=== PATIENT | female | born 1995 | race American Indian/Alaskan Native ===

== ENCOUNTER 2019-01-14 18:01 | Emergency (ER) | payer MEDICAID ==
--- NOTE | 2019-01-14 19:17 | Event Note ---
ED Screening Note Date of service: 01/14/19 Time: 19:12 ED Screening Note: This is a 23 y.o. F. that presents to the ER with dizziness, headache, and nausea for 4 days. Patient states she is 14 weeks . Followed by OBGYN. Reports a cramping sensation. Completed antibiotics for UTI 2-3 weeks ago. Denies chest pain, SOB, palpitations, diarrhea, fever, or chills. This initial assessment/diagnostic orders/clinical plan/treatment(s) is/are subject to change based on patients health status, clinical progression and re- assessment by fellow clinical providers in the ED. Further treatment and workup at subsequent clinical providers discretion. Patient/guardian urged not to elope from the ED as their condition may be serious if not clinically assessed and managed. Initial orders include: Labs
[2019-01-14 20:44] LABS: Basophils # (Auto) 0.1 K/mm3 (0.0-0.1); Basophils % (Auto) 0.5 % (0.0-1.8); Eosinophils # (Auto) 0.3 K/mm3 (0.0-0.4); Eosinophils % (Auto) 3.1 % (0.0-4.3); Hematocrit 37.6 % (30.3-42.9); Hemoglobin 12.9 gm/dl (10.1-14.3); Lymphocytes # (Auto) 2.6 K/mm3 (1.2-5.4); Lymphocytes % (Auto) 23.9 % (13.4-35.0); Mean Corpuscular HGB Conc 34 % (30-34); Mean Corpuscular Volume 92 fl (79-97); Monocytes # (Auto) 0.7 K/mm3 (0.0-0.8); Monocytes % (Auto) 6.4 % (0.0-7.3); Platelet Count 254 K/mm3 (140-440); Red Blood Count 4.09 M/mm3 (3.65-5.03); Red Cell Distribution Width 12.6 % (13.2-15.2)
[2019-01-14 20:52] LABS: Bilirubin,Urine NEG (Negative); Blood,Urine NEG (Negative); Color,Urine Yellow (Yellow); Mucus,Urine FEW /HPF; Protein,Urine <15 mg/dL mg/dL (Negative); Urobilinogen,Urine < 2.0 mg/dL (<2.0)
[2019-01-14 21:00] LABS: Alanine Aminotransferase 10 units/L (7-56); Albumin 3.8 g/dL (3.9-5); BUN/Creatinine Ratio 24; Blood Urea Nitrogen 12 mg/dL (7-17); Hemolysis Index 7
--- NOTE | 2019-01-14 21:12 | Emergency Department Report ---
ED General Adult HPI - General Chief complaint: Dizziness Stated complaint: DIZZY/CRAMPING/CONSITPATED Time Seen by Provider: 01/14/19 19:11 Source: patient Mode of arrival: Ambulatory Limitations: No Limitations - History of Present Illness Initial comments: Patient is a 23-year-old female who presents the emergency room with complaints of constipation for 3 days. Patient states she has also had intermittent episodes of feeling lightheaded. Patient denies any abdominal pain, vaginal bleeding, chest pain, urinary symptoms, nausea, vomiting, fever, palpitations, shortness of breath, syncope, any other symptoms. pt is currently 14 weeks and her MILLINERY DEPARTMENT MANAGER is [employer] MANAGER. States her last menstrual cycle was approximately September 30. pt has not discussed these symptoms with her MILLINERY DEPARTMENT MANAGER. pt is tolerating by mouth intake with no difficulty. She denies any past medical history or allergies to medications. /P:2/A:1 - Related Data Previous Rx's Medication Instructions Recorded Last Taken Type Polyethylene Glycol 3350 [Miralax] 17 gm PO DAILY 3 Days #1 powder 01/15/19 Unknown Rx Allergies Allergy/AdvReac Type Severity Reaction Status Date / Time No Known Allergies Allergy Unverified 01/14/19 18:14 ED Review of Systems ROS: Stated complaint: DIZZY/CRAMPING/CONSITPATED Other details as noted in HPI Comment: All other systems reviewed and negative ED Past Medical Hx - Past Medical History Previous Medical History?: No - Surgical History Past Surgical History?: Yes Additional Surgical History: - Social History Smoking Status: Never Smoker - Medications Home Medications: Home Medications Medication Instructions Recorded Confirmed Last Taken Type Polyethylene Glycol 3350 [Miralax] 17 gm PO DAILY 3 Days #1 powder 01/15/19 Unknown Rx ED Physical Exam - General Limitations: No Limitations General appearance: alert, in no apparent distress - Head Head exam: Present: atraumatic, normocephalic - Eye Eye exam: Present: normal appearance, PERRL, EOMI. Absent: nystagmus - ENT ENT exam: Present: mucous membranes moist - Respiratory Respiratory exam: Present: normal lung sounds bilaterally. Absent: respiratory distress, wheezes, rales, rhonchi, stridor, chest wall tenderness, accessory muscle use, decreased breath sounds, prolonged expiratory - Cardiovascular Cardiovascular Exam: Present: regular rate, normal rhythm, normal heart sounds. Absent: systolic murmur, diastolic murmur, rubs, gallop - GI/Abdominal GI/Abdominal exam: Present: soft, normal bowel sounds. Absent: distended, tenderness, guarding, rebound, rigid - Neurological Exam Neurological exam: Present: alert, oriented X3, CN II-XII intact, normal gait. Absent: motor sensory deficit - Psychiatric Psychiatric exam: Present: normal affect, normal mood - Skin Skin exam: Present: warm, dry, intact ED Course Vital Signs 01/14/19 01/14/19 01/15/19 19:12 21:54 02:00 Temperature 98.6 F Pulse Rate 105 H 90 Pulse Rate [ 92 H Lying] Respiratory 18 16 Rate Blood Pressure 125/70 Blood Pressure 114/69 [Lying] Blood Pressure 114/74 [Right] O2 Sat by Pulse 97 99 Oximetry ED Medical Decision Making - Lab Data Result diagrams: 01/14/19 20:24 01/14/19 20:24 Lab Results 01/14/19 01/14/19 01/14/19 Range/Units 20:13 20:24 20:24 WBC 10.7 (4.5-11.0) K/mm3 RBC 4.09 (3.65-5.03) M/mm3 Hgb 12.9 (10.1-14.3) gm/dl Hct 37.6 (30.3-42.9) % MCV 92 (79-97) fl MCH 31 (28-32) pg MCHC 34 (30-34) % RDW 12.6 L (13.2-15.2) % Plt Count 254 (140-440) K/mm3 Lymph % (Auto) 23.9 (13.4-35.0) % [place] % (Auto) 6.4 (0.0-7.3) % Eos % (Auto) 3.1 (0.0-4.3) % Baso % (Auto) 0.5 (0.0-1.8) % Lymph # 2.6 (1.2-5.4) K/mm3 [place] # 0.7 (0.0-0.8) K/mm3 Eos # 0.3 (0.0-0.4) K/mm3 Baso # 0.1 (0.0-0.1) K/mm3 Seg Neutrophils % 66.1 (40.0-70.0) % Seg Neutrophils # 7.1 (1.8-7.7) K/mm3 Sodium 136 L (137-145) mmol/L Potassium 3.6 (3.6-5.0) mmol/L Chloride 103.8 (98-107) mmol/L Carbon Dioxide 21 L (22-30) mmol/L Anion Gap 15 mmol/L BUN 12 (7-17) mg/dL Creatinine 0.5 L (0.7-1.2) mg/dL Estimated GFR > 60 ml/min BUN/Creatinine Ratio 24 % Glucose 100 (65-100) mg/dL Calcium 9.0 (8.4-10.2) mg/dL Phosphorus (2.5-4.5) mg/dL Magnesium (1.7-2.3) mg/dL Total Bilirubin < 0.20 (0.1-1.2) mg/dL AST 15 (5-40) units/L ALT 10 (7-56) units/L Alkaline Phosphatase 57 (35-129) units/L Total Protein 7.0 (6.3-8.2) g/dL Albumin 3.8 L (3.9-5) g/dL Albumin/Globulin Ratio 1.2 % HCG, Quant (0-4) mIU/mL Urine Color Yellow (Yellow) Urine Turbidity Clear (Clear) Urine pH 6.0 (5.0-7.0) Ur Specific [place] 1.024 (1.003-1.030) Urine Protein <15 mg/dl (Negative) mg/dL Urine Glucose (UA) Neg (Negative) mg/dL Urine Ketones Neg (Negative) mg/dL Urine Blood Neg (Negative) Urine Nitrite Neg (Negative) Urine Bilirubin Neg (Negative) Urine Urobilinogen < 2.0 (<2.0) mg/dL Ur Leukocyte Esterase Tr (Negative) Urine WBC (Auto) 1.0 (0.0-6.0) /HPF Urine RBC (Auto) 1.0 (0.0-6.0) /HPF U Epithel Cells (Auto) 1.0 (0-13.0) /HPF Urine Mucus Few /HPF 01/14/19 01/14/19 Range/Units 20:24 20:24 WBC (4.5-11.0) K/mm3 RBC (3.65-5.03) M/mm3 Hgb (10.1-14.3) gm/dl Hct (30.3-42.9) % MCV (79-97) fl MCH (28-32) pg MCHC (30-34) % RDW (13.2-15.2) % Plt Count (140-440) K/mm3 Lymph % (Auto) (13.4-35.0) % [place] % (Auto) (0.0-7.3) % Eos % (Auto) (0.0-4.3) % Baso % (Auto) (0.0-1.8) % Lymph # (1.2-5.4) K/mm3 [place] # (0.0-0.8) K/mm3 Eos # (0.0-0.4) K/mm3 Baso # (0.0-0.1) K/mm3 Seg Neutrophils % (40.0-70.0) % Seg Neutrophils # (1.8-7.7) K/mm3 Sodium (137-145) mmol/L Potassium (3.6-5.0) mmol/L Chloride (98-107) mmol/L Carbon Dioxide (22-30) mmol/L Anion Gap mmol/L BUN (7-17) mg/dL Creatinine (0.7-1.2) mg/dL Estimated GFR ml/min BUN/Creatinine Ratio % Glucose (65-100) mg/dL Calcium (8.4-10.2) mg/dL Phosphorus 3.60 (2.5-4.5) mg/dL Magnesium 1.90 (1.7-2.3) mg/dL Total Bilirubin (0.1-1.2) mg/dL AST (5-40) units/L ALT (7-56) units/L Alkaline Phosphatase (35-129) units/L Total Protein (6.3-8.2) g/dL Albumin (3.9-5) g/dL Albumin/Globulin Ratio % HCG, Quant 19196 H (0-4) mIU/mL Urine Color (Yellow) Urine Turbidity (Clear) Urine pH (5.0-7.0) Ur Specific [place] (1.003-1.030) Urine Protein (Negative) mg/dL Urine Glucose (UA) (Negative) mg/dL Urine Ketones (Negative) mg/dL Urine Blood (Negative) Urine Nitrite (Negative) Urine Bilirubin (Negative) Urine Urobilinogen (<2.0) mg/dL Ur Leukocyte Esterase (Negative) Urine WBC (Auto) (0.0-6.0) /HPF Urine RBC (Auto) (0.0-6.0) /HPF U Epithel Cells (Auto) (0-13.0) /HPF Urine Mucus /HPF - EKG Data EKG shows normal: sinus rhythm, axis, intervals, QRS complexes, ST-T waves Rate: normal - Radiology Data Radiology results: report reviewed ULTRASOUND OBSTETRIC INDICATION / CLINICAL INFORMATION: lightheaded, 14 weeks . Clinical Gestational Age (GA): 15 weeks 2 days TECHNIQUE: Transabdominal. COMPARISON: None available. FINDINGS: There is a single intrauterine . Biparietal Diameter = 2.7 cm = 14 weeks, 6 day(s). Head Circumference = 10.1 cm = 14 weeks, 6 day(s). Abdominal Circumference = 8.7 cm = 15 weeks, 0 day(s). Femur Length = 1.6 cm = 14 weeks, 5 day(s). Average Ultrasound Age (AUA) = 14 weeks, 6 day(s). Heart Rate: 167 beats per minute. Estimated Weight in grams (if calculated): Not calculated Estimated Weight Growth Percentile (if calculated): Not calculated Position: cephalic. Cervix: closed. Length in cm (if measured): 3.5 Placenta: anterior and free of the os. Amniotic Fluid Volume: normal Amniotic Fluid Index (RENE) in cm (if calculated): Not calculated. Maternal Adnexa: No significant abnormality. IMPRESSION: 1. Single, living intrauterine with estimated sonographic age of 14 weeks, 6 day(s). 2. No significant sonographic abnormality. Signer Name: Lupe Mena MD Signed: 01/15/2019 1:40 AM Workstation Name: [id number] Transcribed By: DT Dictated By: Bob Mena MD Electronically Authenticated By: Bob Mena MD Signed Date/Time: 01/15/19 0140 - Medical Decision Making Patient is a 23-year-old female who presents the emergency room with complaints of constipation for 3 days. Patient states she has also had intermittent episodes of feeling lightheaded. Patient denies any abdominal pain, vaginal bleeding, chest pain, urinary symptoms, nausea, vomiting, fever, palpitations, shortness of breath, syncope, any other symptoms. pt is currently 14 weeks and her MILLINERY DEPARTMENT MANAGER is MILLIN[employer] DEPARTMENT MANAGER. States her last menstrual cycle was approximately September 30. pt has not discussed these symptoms with her MILLINERY DEPARTMENT MANAGER. pt is tolerating by mouth intake with no difficulty. She denies any past medical history or allergies to medications. /P:2/A:1. initially vitals with presence of orthostatic hypotension, given 2L of NS, and orthostatic vitals improved to normal. normal physical examination, no neuro deficits on exam. OB US: 1. Single, living intrauterine with estimated sonographic age of 14 weeks, 6 day(s). 2. No significant sonographic abnormality. EKG is WNL. pt given miralax for constipation. advised pt to please take medication as prescribed daily for 3 days. Increase your water intake and eat a high-fiber diet. Please follow up with her MILLINERY DEPARTMENT MANAGER in the next 3-5 days. Return to the emergency room for any new or worsening symptoms. - Differential Diagnosis dehydration, ortho hypotension, subchronic hemorrhage, UTI, Critical care attestation.: If time is entered above; I have spent that time in minutes in the direct care of this critically ill patient, excluding procedure time. ED Disposition Clinical Impression: Light headedness Constipation Qualifiers: Constipation type: unspecified constipation type Qualified Code(s): K59.00 - Constipation, unspecified Disposition: - TO HOME OR SELFCARE Is pt being admited?: No Does the pt Need Aspirin: No Condition: Stable Instructions: Constipation (ED), High Fiber Diet (ED), Lightheadedness (ED) Additional Instructions: Please take medication as prescribed daily for 3 days. Increase your water intake and eat a high-fiber diet. Please follow up with her MILLINERY DEPARTMENT MANAGER in the next 3-5 days. Return to the emergency room for any new or worsening symptoms. Prescriptions: Polyethylene Glycol 3350 [Miralax] 17 gm PO DAILY 3 Days #1 powder Referrals: [facility] [facility]NAGER [Provider Group] - 3-5 Days Time of Disposition: 01:49 Print Language: SRI LANKAN
[2019-01-14] MEDS ORDERED: SODIUM CHLORIDE 0.9% 1000 ML 1,000 ML IV ONE ×2 (22:12)
[2019-01-14] MEDS ORDERED: METOCLOPRAMIDE 10 MG/2 ML INJ IV ONE (23:23)
[2019-01-14] MEDS ORDERED: diphenhydrAMINE 50 MG/ML VIAL IV ONE (23:23)
--- NOTE | 2019-01-15 01:45 | Ultrasound Report ---
ULTRASOUND OBSTETRIC INDICATION / CLINICAL INFORMATION: lightheaded, 14 weeks . Clinical Gestational Age (GA): 15 weeks 2 days TECHNIQUE: Transabdominal. COMPARISON: None available. FINDINGS: There is a single intrauterine . Biparietal Diameter = 2.7 cm = 14 weeks, 6 day(s). Head Circumference = 10.1 cm = 14 weeks, 6 day(s). Abdominal Circumference = 8.7 cm = 15 weeks, 0 day(s). Femur Length = 1.6 cm = 14 weeks, 5 day(s). Average Ultrasound Age (AUA) = 14 weeks, 6 day(s). Heart Rate: 167 beats per minute. Estimated Weight in grams (if calculated): Not calculated Estimated Weight Growth Percentile (if calculated): Not calculated Position: cephalic. Cervix: closed. Length in cm (if measured): 3.5 Placenta: anterior and free of the os. Amniotic Fluid Volume: normal Amniotic Fluid Index (RENE) in cm (if calculated): Not calculated. Maternal Adnexa: No significant abnormality. IMPRESSION: 1. Single, living intrauterine with estimated sonographic age of 14 weeks, 6 day(s). 2. No significant sonographic abnormality. Signer Name: Lupe Mena MD Signed: 01/15/2019 1:40 AM Workstation Name: [email or web address]
[2019-01-15 03:27] VITALS: BP 114/74
== END 2019-01-15 02:00 | disposition home or self-care (01) ==
LOC: ED 18:01
DX: O99.611 Diseases of the digestive system complicating pregnancy, first trimester (principal); K92.9 Disease of digestive system, unspecified; Z3A.14 14 weeks gestation of pregnancy
CPT/HCPCS: 36415; 76805; 80053; 81001; 83735; 84100; 84702; 85025; 93005; 93010; 96360; 99284; J7030; J1200; J2765

== ENCOUNTER 2019-01-24 18:37 | Emergency (ER) | payer MEDICAID ==
[2019-01-24 18:47] VITALS: BP 135/78
--- NOTE | 2019-01-24 20:48 | Ultrasound Report ---
US OB >= 14 weeks Fetus INDICATION / CLINICAL INFORMATION: no heartbeat detected; abdominal pain. COMPARISON: 01/15/2019 FINDINGS: Single, viable intrauterine in cephalic presentation. heart rate 165. Amniotic fluid volume is normal, with a fluid index of 9.4 cm. Placenta is anterior and free of the c ervical os. Cervical length measures 3.9 cm. Biparietal diameter 3.1 cm, 15 weeks 6 days. Head circumference 12.3 cm, 16 weeks 1 day. Abdominal circumference 9.5 cm, 15 weeks 4 days. Femur length 1.8 cm, 15 weeks 2 days. IMPRESSION: 1. Single, viable intrauterine , estimated ultrasound gestational age 15 weeks 5 days. Signer Name: Aakash Malcolm MD Signed: 01/24/2019 8:44 PM Workstation Name: [id number]
[2019-01-24 20:58] LABS: Basophils # (Auto) 0.1 K/mm3 (0.0-0.1); Basophils % (Auto) 0.6 % (0.0-1.8); Eosinophils # (Auto) 0.3 K/mm3 (0.0-0.4); Eosinophils % (Auto) 2.3 % (0.0-4.3); Hematocrit 36.3 % (30.3-42.9); Hemoglobin 12.5 gm/dl (10.1-14.3); Lymphocytes % (Auto) 23.1 % (13.4-35.0); Mean Corpuscular HGB Conc 35 % (30-34); Mean Corpuscular Volume 92 fl (79-97); Monocytes # (Auto) 0.8 K/mm3 (0.0-0.8); Monocytes % (Auto) 6.3 % (0.0-7.3); Platelet Count 257 K/mm3 (140-440); Red Blood Count 3.94 M/mm3 (3.65-5.03); Red Cell Distribution Width 12.4 % (13.2-15.2)
--- NOTE | 2019-01-24 21:28 | Event Note ---
ED Screening Note Date of service: 01/24/19 Time: 18:50 ED Screening Note: 23 [facility] for no heart tones today in office This initial assessment/diagnostic orders/clinical plan/treatment(s) is/are subject to change based on patients health status, clinical progression and re- assessment by fellow clinical providers in the ED. Further treatment and workup at subsequent clinical providers discretion. Patient/guardian urged not to elope from the ED as their condition may be serious if not clinically assessed and managed. Initial orders include: labs U/s acc eval with nml results
== END 2019-01-24 22:00 | disposition left against medical advice (07) ==
LOC: ED 18:37
DX: O26.892 Other specified pregnancy related conditions, second trimester (principal); Z53.21 Procedure and treatment not carried out due to patient leaving prior to being seen by health care provider
CPT/HCPCS: 36415; 76805; 84702; 85025; 86900; 86901

== ENCOUNTER 2019-03-03 21:03 | Outpatient (CLI) | payer MEDICAID ==
[2019-03-03] MEDS ORDERED: LACTATED RINGERS 1,000 ML IV ONE (23:03)
--- NOTE | 2019-03-04 00:07 | Ultrasound Report ---
Of the ultrasound. 03/03/2019. HISTORY: Status post fall. Evaluate for abruption. COMPARISON: 02/24/2019. FINDINGS: A single viable intrauterine is dated 20 weeks 5 days. Estimated weight is 373 g. heart tones are 163 bpm. Cervical length is 3.4 cm. The placenta is anteriorly located. No abruption is identified. position is cephalic. IMPRESSION: Viable intrauterine dated 20 weeks 5 days. No abruption identified. Signer Name: Ezequiel Lane MD Signed: 03/04/2019 12:03 AM Workstation Name: [id number]
[2019-03-04 00:15] LABS: INR 1.01 (0.87-1.13)
[2019-03-04 00:16] LABS: Partial Thromboplastin Time 25.8 Sec. (24.2-36.6)
[2019-03-04 00:21] LABS: Bacteria,Urine 1+ /HPF (Negative); Bilirubin,Urine NEG (Negative); Blood,Urine NEG (Negative); Color,Urine Yellow (Yellow); Mucus,Urine FEW /HPF; Protein,Urine <15 mg/dL mg/dL (Negative); Urobilinogen,Urine < 2.0 mg/dL (<2.0)
[2019-03-04 00:30] LABS: Hemoglobin 11.6 gm/dl (10.1-14.3); Mean Corpuscular HGB Conc 33 % (30-34); Mean Corpuscular Volume 94 fl (79-97); Platelet Count 238 K/mm3 (140-440); Red Blood Count 3.72 M/mm3 (3.65-5.03); Red Cell Distribution Width 12.9 % (13.2-15.2)
[2019-03-04 02:04] VITALS: BP 103/70
== END 2019-03-04 02:22 | disposition home or self-care (01) ==
LOC: TRG 21:03 → LD 21:10 → TRG 03-04 02:22
PROVIDERS: ATTEND Obstetrics & Gynecology
DX: O26.892 Other specified pregnancy related conditions, second trimester (principal); R10.32 Left lower quadrant pain; O47.02 False labor before 37 completed weeks of gestation, second trimester; Z3A.22 22 weeks gestation of pregnancy; W10.8XXA Fall (on) (from) other stairs and steps, initial encounter; Y93.89 Activity, other specified; Y92.89 Other specified places as the place of occurrence of the external cause; Y99.0 Civilian activity done for income or pay
CPT/HCPCS: 36415; 76805; 81001; 85027; 85610; 85730; 86850; 86900; 86901; 96360; J7120

== ENCOUNTER 2019-06-28 15:56 | Outpatient (CLI) | payer MEDICAID ==
[2019-06-28 16:09] VITALS: BP 125/67
--- NOTE | 2019-06-28 19:42 | Ultrasound Report ---
ULTRASOUND BIOPHYSICAL PROFILE INDICATION / CLINICAL INFORMATION: Decreased movement.. COMPARISON: None available. FINDINGS: BREATHING MOVEMENT = 2 GROSS BODY MOVEMENT = 2 TONE = 2 QUALITATIVE AMNIOTIC FLUID VOLUME = 2 TOTAL BIOPHYSICAL SCORE = 11/24 AMNIOTIC FLUID (cm) = Deepest vertical pocket 2.4 cm PRESENTATION: Cephalic. HEART RATE (beats per minute): 141 IMPRESSION: biophysical profile = 11/24 Signer Name: Jay Wright MD Signed: 06/28/2019 7:37 PM Workstation Name: [id number]
== END 2019-06-28 17:34 | disposition home or self-care (01) ==
LOC: TRG 15:56
PROVIDERS: ATTEND Obstetrics & Gynecology
DX: O36.8130 Decreased fetal movements, third trimester, not applicable or unspecified (principal); Z3A.37 37 weeks gestation of pregnancy
CPT/HCPCS: 59025; 76819